=== PATIENT | male | born 1970 | race Caucasian/White ===

== ENCOUNTER 2017-05-27 13:05 | Emergency (ER) | payer MEDICAID, OTHER ==
[~2017-05-27] VITALS: Ht 167.6 cm; Wt 100.0 kg
[~2017-05-27 13:05] MED LIST: CARBXR200 PO; INDO25 PO; TRAZ100 PO
[2017-05-27 13:26] VITALS: BP 128/60; PULSE 64; RESP 18; TEMP 98.3; O2SAT 99
[2017-05-27 14:09] LABS: AUTOMATED NEUTROPHIL # 4.6 TH/MM3 (1.8-7.7); BASOPHIL # 0.1 TH/MM3 (0-0.2); BASOPHIL % 1.8 % (0.0-2.0); EOSINOPHIL # 0.1 TH/MM3 (0-0.4); EOSINOPHIL % 1.1 % (0.0-4.0); HEMATOCRIT 39.1 % (39.0-51.0); HEMOGLOBIN 13.2 GM/DL (13.0-17.0); LYMPH % 18.6 % (9.0-44.0); LYMPHOCYTE # 1.2 TH/MM3 (1.0-4.8); MEAN CORPUSCULAR HEMOGLOBIN 34.4 PG (27.0-34.0); MEAN CORPUSCULAR HGB CONC 33.8 % (32.0-36.0); MEAN PLATELET VOLUME 7.3 FL (7.0-11.0); MONO % 8.2 % (0.0-8.0); MONOCYTE # 0.5 TH/MM3 (0-0.9); NEUT % 70.3 % (16.0-70.0); PLATELET COUNT 251 TH/MM3 (150-450); RED BLOOD COUNT 3.83 MIL/MM3 (4.50-5.90); WHITE BLOOD COUNT 6.5 TH/MM3 (4.0-11.0)
[2017-05-27 14:32] LABS: BICARBONATE 24.8 MEQ/L (21.0-32.0); BLOOD UREA NITROGEN 14 MG/DL (7-18); CALCIUM 8.1 MG/DL (8.5-10.1); CHLORIDE 106 MEQ/L (98-107); CREATININE 1.14 MG/DL (0.60-1.30); GLOMERULAR FILTRATION RATE 69 ML/MIN (>89); GLUCOSE,RANDOM 102 MG/DL (74-106); SODIUM (NA) 140 MEQ/L (136-145)
[2017-05-27 14:37] LABS: TROPONIN I LESS THAN 0.02 NG/ML (0.02-0.05)
[2017-05-27 16:55] VITALS: BP 137/61; PULSE 66; RESP 19; O2SAT 99
[2017-05-27] MEDS ORDERED: ARIP1TAB11 PO (16:57)
[2017-05-27] MEDS ORDERED: ALLO100T PO (16:57)
[2017-05-27] MEDS ORDERED: MELA1TAB18 PO (16:57)
[2017-05-27] MEDS ORDERED: GABA100C4 PO (16:57)
[2017-05-27] MEDS ORDERED: LIDOCAINE VISCOUS 2% SOLN 15 ML UDC PO ONE (17:00)
[2017-05-27] MEDS ORDERED: ONDANSETRON ODT 4 MG TAB PO ONE ×2 (17:00→19:45)
[2017-05-27] MEDS ORDERED: ALUMINUM/MAGNESIUM/SIMETH 30 ML CUP PO ONE (17:00)
--- NOTE | 2017-05-27 17:26 | RADRPT ---
EXAM DATE/TIME: 05/27/2017 17:08 [place] COMPARISON: No previous studies available for comparison. INDICATIONS : Abdominal pain starting today MEDICAL HISTORY : Unobtainable SURGICAL HISTORY : Unobtainable ENCOUNTER: Initial ACUITY: 1 day PAIN SCORE: 10/10 LOCATION: Bilateral abdomen FINDINGS: Supine and upright views of the abdomen were performed. The abdominal bowel gas pattern is normal. No air fluid levels are seen. No abnormal masses, calcifications, or organomegaly is seen. The visu alized lower lungs are clear. No evidence of free intraperitoneal gas. The osseous structures are u nremarkable. CONCLUSION: Negative for acute process Kalia Torres MD FACR on May 27, 2017 at 17:21 Board Certified Radiologist. This report was verified electronically.
--- NOTE | 2017-05-27 17:30 | PD ---
HPI Chief Complaint: Abdominal Pain Time Seen by Provider: 16:47 Travel History International Travel<30 days: No Contact w/Intl Traveler<30days: No Traveled to known affect area: No History of Present Illness HPI 46-year-old patient with Down syndrome, presents to emergency department with epigastric pain since eating a chicken sandwich at approximately 1230 this afternoon. Patient continues to have discomfort in the epigastric region. Patient denies nausea or vomiting. No recent illness noted. No chest pain or shortness of breath. Patient denies diarrhea. No cough. No recent fever or chills. No changes in his bowels reported. He is here with caregiver. He has no known drug allergies. PFSH Past Medical History Developmental Delay: Yes Gout: Yes Tetanus Vaccination: Unknown Past Surgical History Abdominal Surgery: Yes Pacemaker: No Social History Alcohol Use: No Tobacco Use: No Substance Use: No Allergies-Medications (Allergen,Severity, Reaction): Coded Allergies: No Known Allergies (Unverified Adverse Reaction, Unknown, 05/27/17) Reported Meds & Prescriptions Reported Meds & Active Scripts Active Ranitidine (Ranitidine HCl) 150 Mg Tab 150 Mg PO BID Reported Melatonin 10 Mg-1 Mg Tab 10 Mg PO HS PRN Aripiprazole 5 Mg Tab 5 Mg PO DAILY Gabapentin 100 Mg Cap 100 Mg PO HS Allopurinol 100 Mg Tab 100 Mg PO DAILY Review of Systems Except as stated in HPI: all other systems reviewed are Neg General / Constitutional: No: Fever Eyes: No: Visual changes HENT: No: Headaches Cardiovascular: No: Chest Pain or Discomfort Respiratory: No: Shortness of Breath Gastrointestinal: Positive: Abdominal Pain (See history of present illness per) , Dysphagia, No: Nausea, Vomiting, Diarrhea, Constipation, Indigestion, Loss of Appetite Genitourinary: No: Dysuria Musculoskeletal: No: Pain Skin: No Rash Neurologic: No: Weakness Psychiatric: No: Depression Endocrine: No: Polydipsia Hematologic/Lymphatic: No: Easy Bruising Physical Exam Narrative GENERAL: Patient appears in no obvious distress per SKIN: Warm and dry. Normal color. Normal turgor. No rash. HEAD: Atraumatic. Normocephalic. EYES: Pupils equal and round. No scleral icterus. No injection or drainage. ENT: No nasal bleeding or discharge. Mucous membranes pink and moist. Pharynx is clear. Airways patent NECK: Trachea midline. Supple and nontender per CARDIOVASCULAR: Regular rate and rhythm. RESPIRATORY: No accessory muscle use. Clear to auscultation. Breath sounds equal bilaterally. GASTROINTESTINAL: Abdomen soft, mild to moderate epigastric tenderness, nondistended. No rebound. Hepatic and splenic margins not palpable. MUSCULOSKELETAL: Extremities without clubbing, cyanosis, or edema. No obvious deformities. NEUROLOGICAL: Awake and alert. No obvious cranial nerve deficits. Motor grossly within normal limits. Five out of 5 muscle strength in the arms and legs. Normal speech. PSYCHIATRIC: Appropriate mood and affect; insight and judgment normal. Data Data Last Documented VS Vital Signs Date Time Temp Pulse Resp B/P (MAP) Pulse Ox O2 Delivery O2 Flow Rate FiO2 05/27/17 16:55 66 19 137/61 (86) 99 Room Air 05/27/17 13:26 98.3 Orders Orders Electrocardiogram (05/27/17 13:25) Complete Blood Count With Diff (05/27/17 13:25) Basic Metabolic Panel (Bmp) (05/27/17 13:25) Ckmb (Isoenzyme) Profile (05/27/17 13:25) Troponin I (05/27/17 13:25) CKMB (05/27/17 13:52) CKMB% (05/27/17 13:52) Urinalysis - C+S If Indicated (05/27/17 16:48) Abdomen, Flat & Upright (05/27/17 ) Al-Mag Hy-Si 40-40-4 Mg/Ml Liq (Mag-Al P (05/27/17 17:00) Lidocaine 2% Viscous (Xylocaine 2% Visco (05/27/17 17:00) Ondansetron Odt (Zofran Odt) (05/27/17 17:00) Labs Laboratory Tests Test 05/27/17 13:52 05/27/17 18:20 White Blood Count 6.5 TH/MM3 Red Blood Count 3.83 MIL/MM3 Hemoglobin 13.2 GM/DL Hematocrit 39.1 % Mean Corpuscular Volume 102.0 FL Mean Corpuscular Hemoglobin 34.4 PG Mean Corpuscular Hemoglobin Concent 33.8 % Red Cell Distribution Width 15.0 % Platelet Count 251 TH/MM3 Mean Platelet Volume 7.3 FL Neutrophils (%) (Auto) 70.3 % Lymphocytes (%) (Auto) 18.6 % Monocytes (%) (Auto) 8.2 % Eosinophils (%) (Auto) 1.1 % Basophils (%) (Auto) 1.8 % Neutrophils # (Auto) 4.6 TH/MM3 Lymphocytes # (Auto) 1.2 TH/MM3 Monocytes # (Auto) 0.5 TH/MM3 Eosinophils # (Auto) 0.1 TH/MM3 Basophils # (Auto) 0.1 TH/MM3 CBC Comment DIFF FINAL Differential Comment Blood Urea Nitrogen 14 MG/DL Creatinine 1.14 MG/DL Random Glucose 102 MG/DL Calcium Level 8.1 MG/DL Sodium Level 140 MEQ/L Potassium Level 4.2 MEQ/L Chloride Level 106 MEQ/L Carbon Dioxide Level 24.8 MEQ/L Anion Gap 9 MEQ/L Estimat Glomerular Filtration Rate 69 ML/MIN Total Creatine Kinase 107 U/L Creatine Kinase MB 1.0 NG/ML Troponin I LESS THAN 0.02 NG/ML MDM Medical Decision Making Medical Screen Exam Complete: Yes Emergency Medical Condition: Yes Medical Record Reviewed: Yes Differential Diagnosis Abdominal pain. Esophagitis. Gastritis. Narrative Course Patient appears medically stable at time of exam Labs ordered in triage are all within normal limits. Urinalysis is ordered. KUB and upright is ordered. Patient is given a GI cocktail. KUB shows no acute process per radiologist. Urinalysis is unremarkable Patient feels much improved after GI cocktail. Patient will be continued on ranitidine 150 mg twice daily 2 weeks. Patient to follow-up with primary care as needed. Diagnosis Primary Impression: Gastric reflux Referrals: Primary Care Physician Patient Instructions: Diet for Stomach Ulcers and Gastritis (ED), General Instructions Additional Instructions: KUB shows no acute process per radiologist. Urinalysis is unremarkable Patient feels much improved after GI cocktail. Patient will be continued on ranitidine 150 mg twice daily 2 weeks. Patient to follow-up with primary care as needed. Med/Other Pt SpecificInfo: Prescription(s) given Scripts Ranitidine (Ranitidine) 150 Mg Tab 150 MG PO BID for Heartburn Management, #30 TAB 0 Refills Prov: Jeffrey Baumann MD 05/27/17 Disposition: DISCHARGE HOME Condition: Stable Fransico Chaparro May 27, 2017 17:30
[2017-05-27] MEDS ORDERED: RANI150T PO (18:33)
[2017-05-27 18:48] LABS: BILIRUBIN, URINE NEG (NEG); BLOOD, URINE NEG (NEG); GLUCOSE,URINE NEG (NEG); KETONE, URINE NEG (NEG); NITRITE,URINE NEG (NEG); PH, URINE 6.5 (5.0-8.5); URINE COLOR LIGHT-YELLOW (YELLW/STRAW); URINE LEUKOCYTE ESTERASE NEG (NEG)
[2017-05-27 19:27] VITALS: BP 118/61; PULSE 60; RESP 16; O2SAT 100
[2017-05-27] MEDS ORDERED: ZOFR4TAB3 SL (19:43)
--- NOTE | 2017-05-28 19:09 | EKG ---
Date Performed: 05/27/2017 Time Performed: 13:42:50 PTAGE: 46 years EKG: Sinus rhythm NORMAL ECG NO PREVIOUS TRACING DOCTOR: Bj Grigsby Interpretating Date/Time 05/28/2017 19:07:41
== END 2017-05-27 19:56 | disposition home or self-care (01) ==
LOC: NEPD 13:05
DX: K21.9 Gastro-esophageal reflux disease without esophagitis (principal); M10.9 Gout, unspecified; R62.50 Unspecified lack of expected normal physiological development in childhood; Z79.899 Other long term (current) drug therapy
CPT/HCPCS: 74019; 80048; 81001; 82550; 82552; 84484; 85025; 93005; 99285